=== PATIENT | female | born 1985 | race Caucasian/White ===

== ENCOUNTER 2016-12-11 16:02 | Emergency (ER) | payer OTHER ==
[~2016-12-11] VITALS: Ht 160 cm; Wt 74.1 kg
[2016-12-11 16:12] VITALS: BP 141/92; PULSE 86; RESP 16; O2SAT 99
--- NOTE | 2016-12-11 16:18 | ED.REPORT ---
HPI-Preg Under 20 Weeks Date of Service Dec 11, 2016 ED Provider: Dr. Waldemar Guerrero MD A 31 year old, 9 week female presents to the ED with a possible miscarriage symptoms that began this morning. Associated symptoms include abdominal cramping and vaginal bleeding with "clots". The cramps began last night but the bleeding began an hour prior to arrival. Patient reports that her symptoms do not feel like her previous miscarriages. The clots were approx. the size of a pea. She denies excessive hemorrhagia and her primary concern today is the . Patient has an US scheduled for 12/27. She rates her current pain as a 4/10 and her worst pain as a 6/10. She denies history of ectopic . Patient is Rh positive. She reports hx of chlamydia when she was 14. Nursing Notes Stated Complaint: POSS MISCARRAIGE Chief Complaint: Female Abdominal Pain Nursing Notes Reviewed: Yes Allergies: Coded Allergies: hydrocodone (Verified Allergy, Severe, 12/21/15) General Time Seen by Provider: 16:18 Chief Complaint Vaginal bleeding Context: : Preg test pos serum, ... (9), Para... (4) Hx Obtained From: Patient Arrived By: Walk-in Onset Occurred: 1 - 4 hours ago Symptom Duration: Since onset Progression Since Onset: Constant Location: : Abdomen lower Quality: Cramping Radiation: : None Severity: Current: Pain level 4 out of 10 Severity: Maximum: Pain level 6 out of 10 Associated with: Reports: Vaginal bleeding, Vaginal discharge (clots) Pertinent Negative: Pt denies other symptoms Recent Healthcare: No recent doctor visit, No recent hospitalization Risk-Preg Under 20 Weeks Ectopic Risk Stratification RF Statements: Risk factors reviewed Past Medical History Past Medical History Kidney stones ; currently 9 weeks Past Surgical History None reported. Smoking History Unknown if Ever Smoker Social History Other Social History: Good social support, Local resident Ambulatory Status Independent Review of Systems Constitutional: Denies: Chills, Fever Respiratory: Denies: Shortness of breath GI: Reports: Abdominal pain (Abdominal cramping ) Female: Reports: (approx. 9 weeks ), Vaginal bleeding - abnl ( Spotting during ), Vaginal discharge (Clots ) Complete sys rev & neg: except as marked. Physical Exam Initial Vital Signs Vital Signs (First) Date Time Temp Pulse Resp B/P Pulse Ox O2 Delivery O2 Flow Rate FiO2 3/26/17 16:12 36.8 86 16 141/92 99 Room Air Initial VS: Reviewed Head / Eyes: Atraumatic, Normocephalic, PERRL Extremities: Vascular intact, Neuro intact, No swelling, No tenderness Skin: Warm, Dry, No cyanosis Neurologic: Alert, Oriented, Nonfocal Psychiatric: Mood/affect normal, Behavior normal, Normal thought content General/Constitutional: Awake, Alert Abdomen: Atraumatic, Soft Tenderness/Guarding/Rebound: Positive: Tender LLQ... (tenderness to palpation ) Female Genitourinary: Exam deferred : Exam deferred Respiratory / Chest: Atraumatic, No respiratory distress Cardiovascular: Heart rate NL, Regular rhythm, Heart sounds NL Interpretation & Diagnostics Interpretation & Diagnostics: PROCEDURE: US OB<14 WKS+OB TRANSVAG INDICATIONS: LLQ pain, vaginal spotting, + preg OUTSIDE/PRIOR DATING DATA: Last menstrual period (LMP): Unknown. LMP-based estimated date of delivery (SILVER): Not applicable. First dating scan (date and location): 12.11.16 [facility]. Estimated date of delivery (SILVER) from first dating scan: 08.02.17. TECHNIQUE: Real-time scanning was performed of the fetus and maternal pelvic organs, with image documentation. Endovaginal scanning was also performed to better visualize the fetus and maternal ovaries. COMPARISON: None. FINDINGS: Embryo: An intrauterine gestational sac is present measuring 9 mm. A pole is identified measuring 7 mm. No cardiac activity is seen. Possible yolk sac is seen. There appears to be a small jian-gestational leads superiorly. Measurement variability in dating: +/- 4 weeks by LMP, +/- 7 days by mean sac diameter (use before 6 weeks gestation if crown-rump length not able to be measured), +/- 5 days by crown-rump length (6-12 weeks gestation). Maternal organs: Ovaries not well seen secondary to bowel gas.. Limited images through the kidneys demonstrate no hydronephrosis. IMPRESSION: Early intrauterine gestation. Routine clinical and sonographic followup recommended to document cardiac activity. Dictated by: Nohemi Benedict M.D. on 12/11/2016 at 17:54 Approved by: Nohemi Benedict M.D. on 12/11/2016 at 17:56 Lab Results Interpretation Test 12/11/16 16:45 12/11/16 16:52 Urine Color Yellow (YELLOW) Urine Appearance Clear (CLEAR,HAZY) Urine pH 7.5 (5.0-8.0) Urine Specific [place] 1.010 (1.003-1.035) Urine Protein Negativemg/dL (NEG,TRACE) Urine Glucose (UA) Negativemg/dL (NEGATIVE) Urine Ketones Negativemg/dL (NEGATIVE) Urine Occult Blood Negative (NEGATIVE) Urine Nitrite Negative (NEGATIVE) Urine Bilirubin Negative (NEGATIVE) Urine Urobilinogen Normalmg/dL (NORMAL) Urine Leukocyte Esterase Negative (NEGATIVE) Urine RBC 0-2/hpf (0-2) Urine WBC 0-5/hpf (0-5) Urine Epithelial Cells Moderate/hpf (NONE-MOD) Urine Crystals None seen (NONE SEEN) Urine Bacteria Few/hpf (NONE-FEW) Urine Hyaline Casts None/lpf (NONE) Urine Granular Casts None seen (NONE SEEN) Urine Waxy Casts None seen (NONE SEEN) Urine Red Blood Cell Casts None seen (NONE SEEN) Urine White Blood Cell Casts None seen (NONE SEEN) Urine Mucus None seen (None Seen) Urine Trichomonas None seen (NONE SEEN) Urine Yeast None (NONE SEEN) Urinalysis Comment None Urine Culture Reflexed Not indicated HCG Beta Subunit 3849mIU/mL Hold Yepez Top Tube Received (Received) Re-Eval/Medical Decision Re-Evaluation/Progress : Time of Eval: 17:52 Patient Status: Condition improved Re-Evaluation/Progress Note: Patient is rechecked. She is informed of her lab results, US results and diagnosis. All of the patient's questions are adressed. She understands and agrees with the treatment plan. Counseled Regarding: Diagnosis, Lab results, Need for follow-up, When/why to return to ED Discharge & Departure Primary Impression: Threatened miscarriage in early Disposition: Home Discharge Condition All VS Reviewed: Yes Condition: Improved Patient Instructions: Threatened Miscarriage (ED) Additional Instructions: Thank you for trusting us with your care this morning. Your emergency department evaluation including ultrasound and lab work are inconclusive at this time, however, your results are reassuring that this is not an ectopic . It is too early to see a heart beat and your ultrasound results show that you are approx 6 weeks. I recommend that you attempt to schedule an earlier appointment with your extension service advisor for a follow up. Please return to the emergency department immediately for any new or worsening conditions including any heavy vaginal bleeding, fevers, chills, dizziness or lightheadedness. Referrals: Ross Sandoval PA-C (PCP) Ryan Attestation Portions of this note were transcribed by Brednon Hester. I, Dr. Guerrero personally performed the history, physical exam and medical decision-making; I reviewed and confirmed the accuracy of the information in the transcribed note. Signed by: Ryan Pace, 12/11/16 1800. copies to: Ross Sandoval PA-C, Gary R DO Dec 11, 2016 16:18 BRENDON HESTER Dec 11, 2016 16:28
[2016-12-11 17:24] LABS: APPEARANCE,URINE CLEAR (CLEAR,HAZY); COLOR,URINE YELLOW (YELLOW); OCCULT BLOOD,URINE NEGATIVE (NEGATIVE); PH,URINE 7.5 (5.0-8.0); UROBILINOGEN,URINE NORMAL (NORMAL)
--- NOTE | 2016-12-11 17:58 | DRSVH ---
PROCEDURE: US OB<14 WKS+OB TRANSVAG INDICATIONS: LLQ pain, vaginal spotting, + preg OUTSIDE/PRIOR DATING DATA: Last menstrual period (LMP): Unknown. LMP-based estimated date of delivery (SILVER): Not applicable. First dating scan (date and location): 12.11.16 [facility]. Estimated date of delivery (SILVER) from first dating scan: 08.02.17. TECHNIQUE: Real-time scanning was performed of the fetus and maternal pelvic organs, with image documentation. Endovaginal scanning was also performed to better visualize the fetus and maternal ovaries. COMPARISON: None. FINDINGS: Embryo: An intrauterine gestational sac is present measuring 9 mm. A pole is identified measuri ng 7 mm. No cardiac activity is seen. Possible yolk sac is seen. There appears to be a small pe ri-gestational leads superiorly. Measurement variability in dating: +/- 4 weeks by LMP, +/- 7 days by mean sac diameter (use before 6 weeks gestation if crown-rump length not able to be measured), +/- 5 days by crown-rump length (6-12 weeks gestation). Maternal organs: Ovaries not well seen secondary to bowel gas.. Limited images through the kidneys demonstrate no hydronephrosis. IMPRESSION: Early intrauterine gestation. Routine clinical and sonographic followup recommended to do cument cardiac activity. Dictated by: Nohemi Benedict M.D. on 12/11/2016 at 17:54 Approved by: Nohemi Benedict M.D. on 12/11/2016 at 17:56
[2016-12-11 18:42] VITALS: BP 129/86; PULSE 67; O2SAT 100
[2016-12-11 18:44] VITALS: BP 129/86; PULSE 67; O2SAT 100
== END 2016-12-11 18:45 | disposition home or self-care (01) ==
LOC: SED 16:02
DX: O20.0 Threatened abortion (principal); Z3A.09 9 weeks gestation of pregnancy

== ENCOUNTER 2016-12-14 16:14 | Emergency (ER) | payer OTHER ==
[~2016-12-14] VITALS: Ht 160 cm; Wt 75.0 kg
[2016-12-14 16:39] VITALS: BP 131/88; PULSE 76; RESP 16; O2SAT 99
--- NOTE | 2016-12-14 17:37 | ED.REPORT ---
HPI- Female Date of Service Dec 14, 2016 ED Provider: Semaj Lee DO Patient is a 31 year old female who reports she is 9 weeks who presents to the ED after being referred by urgent care complaining of heavy vaginal bleeding onset 3 days ago. She describes her bleeding as having large clots accompanied by abdominal cramping. She denies lightheadedness, dizziness, or any other symptoms. She was seen in the department 3 days ago at the onset of her symptoms. She claims that she had a miscarriage previously that lasted 12 weeks and she did not receive a D&C. Nursing Notes Stated Complaint: CRAMPING, BLEEDING WITH Chief Complaint: & Delivery Nursing Notes Reviewed: Yes Allergies: Coded Allergies: hydrocodone (Verified Allergy, Severe, 12/14/16) General Time Seen by MD: 17:17 Chief Complaint Vaginal bleeding... Hx Obtained From: Patient Arrived By: Walk-in Sudden in Onset?: Yes Onset Occurred: 3 days ago Symptom Duration: Since onset Past Medical History Past Medical History Kidney stones ; currently 9 weeks Gestational DM Past Surgical History None reported. Smoking History Current Every Day Smoker Social History Alcohol Use: Denies alcohol use Drug Use: THC Other Social History: Good social support, Local resident Ambulatory Status Independent Review of Systems GI: Reports: Abdominal pain Female: Reports: , Vaginal bleeding - abnl Neurologic: Denies: Dizziness, Lightheaded Complete sys rev & neg: except as marked. Physical Exam Initial Vital Signs Vital Signs (First) Date Time Temp Pulse Resp B/P Pulse Ox O2 Delivery O2 Flow Rate FiO2 12/14/16 16:39 36.6 76 16 131/88 99 12/14/16 21:46 Room Air Initial VS: Reviewed General/Constitutional: Well-developed, Well-nourished Head / Eyes: Atraumatic, Normocephalic Neck: Full range of motion Respiratory: No respiratory distress Cardiovascular: Regular rate & rhythm Skin: Warm, Dry Neurologic: Alert, Oriented, Nonfocal Psychiatric: Mood/affect normal, Behavior normal, Normal thought content Female Genitourinary: Welfare Specialist present Mild lower pelvic tenderness Small amount of blood in vagina Os open, signs of conception No active acute hemorrhage Interpretation & Diagnostics Lab Results Interpretation Result Diagram: 12/14/16 191 Test 12/14/16 19:15 White Blood Count 12.1th/mm3 (3.8-10.1) Red Blood Count 4.16mil/mm3 (3.90-5.20) Hemoglobin 13.2g/dL (12.0-15.6) Hematocrit 38.7% (35.0-46.0) Mean Corpuscular Volume 93.0fL (81-100) Mean Corpuscular Hemoglobin 31.7pg (27.0-35.0) Mean Corpuscular Hemoglobin Concent 34.1% (32.0-37.0) Red Cell Distribution Width 12.0% (12.3-15.4) Platelet Count 241bil/L (150-400) Neutrophils (%) (Auto) 61.4% (40-74) Lymphocytes (%) (Auto) 26.5% (14-46) Monocytes (%) (Auto) 8.3% (4-12) Eosinophils (%) (Auto) 3.3% (0-5) Basophils (%) (Auto) 0.2% (0-3) HCG Beta Subunit 2344mIU/mL US Focused OB IMPRESSION: 1. Irregularly shaped gestational sac with questionable pole within. There is no appreciable yolk sac or heart tones. This findings suggest a spontaneous in progress. Close clinical evaluation and serial beta hCG recommended. These findings were discussed with Dr. Lee at 7:15 PM by the material requisitioner. Approved by: Lissett Kirby M.D. on 12/14/2016 at 21:20 Exam Performed by: Allied health pract Re-Eval/Medical Decision Med Decision/Clinical Course This is highly suspicious for a spontaneous . No active hemorrhage and pelvic examination. No signs of active labor. Vital signs are stable. Hemoglobin and hematocrit are reassuring. Rh is positive. I consulted with Dr. Ahuja from obstetrics. We will have outpatient follow-up. Tierra is very pleased with her care and disposition. She will return if she soaks a pad an hour for greater than 3 hours. Short course of Percocet provided for pain. Routine opiate warnings given Re-Evaluation/Progress #1: Time of Eval: 19:00 Re-Evaluation/Progress Note: US estimates patient is 6 weeks and 2 days Re-Evaluation/Progress #2: Time of Eval: 21:24 Re-Evaluation/Progress Note: Rechecked patient. Discussed plan for discharge with followup. Patient understands and agrees with plan. All questions addressed at this time. Consultation : Referral / Consult Name: Garrick Ahuja MD Call Returned at: 21:31 School Business Manager: Will see in office Note: Discussed patient's case. Will see patient in office if needed. Counseled Regarding: Diagnosis, Lab results, Need for follow-up, When/why to return to ED Discharge & Departure Shift Change Sign-Out Response to Therapy: Improved Impression: Primary Impression: Spontaneous Disposition: Home Discharge Condition All VS Reviewed: Yes Condition: Stable Patient Instructions: Spontaneous Miscarriage (ED) Additional Instructions: Take 1-2 Percocet every 6 hours as needed for pain. Do not drive, drink alcohol , or take acetaminophen while taking this medication. Call your OBGYN tomorrow to make a follow up appointment. If your bleeding soaks more than one pad every hour for three hours, return to the emergency department. The ultrasound is very concerning for you having a miscarriage. I expect you're going to have more bleeding and then some cramping and eventually passage of tissue. If you have any problems with this you may need a D&C. Your research intern can discuss this with you as well. Call tomorrow morning to make an appointment with Dr. Ahuja. If needed, he can see you tomorrow morning in [place]. Referrals: NOPCP (PCP) Garrick Ahuja MD Scribe Attestation Portions of this note were transcribed by Erich Tyson. I, Dr. Lee personally performed the history, physical exam and medical decision-making; I reviewed and confirmed the accuracy of the information in the transcribed note. Signed by: Erich Tyson 12/14/16, 8898 copies to: Garrick Ahuja MD, Todd P DO Dec 14, 2016 17:37 ERICH TYSON Dec 14, 2016 18:15
[2016-12-14] MEDS: HYDROmorphone 0.5 mg/0.5 mL iSecure Syringe IVPUSH PRN ×3 (19:10→20:20)
[2016-12-14 19:26] LABS: BASOPHILS % (AUTO) 0.2 % (0-3); EOSINOPHILS % (AUTO) 3.3 % (0-5); MONOCYTES % (AUTO) 8.3 % (4-12); Mean Corpuscular Hemoglobin 31.7 pg (27.0-35.0); NEUTROPHILS % (AUTO) 61.4 % (40-74); Platelet Count 241 bil/L (150-400)
[2016-12-14] MEDS ORDERED: _oxyCODONE/APAP 5-325 mg Tablet PO PRN (21:20)
--- NOTE | 2016-12-14 21:21 | DRSVH ---
PROCEDURE: US OB<14 WKS+OB TRANSVAG INDICATIONS: early , now heavy bleeding and pain OUTSIDE/PRIOR DATING DATA: Last menstrual period (LMP): Unknown. LMP-based estimated date of delivery (SILVER): Not available. First dating scan (date and location): 12/11/16, [facility]. Estimated date of delivery (SILVER) from first dating scan: 08/02/17. TECHNIQUE: Real-time scanning was performed of the fetus and maternal pelvic organs, with image documentation. Endovaginal scanning was also performed to better visualize the fetus and maternal ovaries. COMPARISON: [facility], US, US OB<14 WKS+OB TRANSVAG, 12/11/2016, 16:00. FINDINGS: Embryo: An irregularly shaped gestational sac is visualized with internal echogenic debris. It is un clear whether this represents a pole. No heart tones are detected. No definite yolk sac i s detected. IMPRESSION: 1. Irregularly shaped gestational sac with questionable pole within. There is no appreciable yo lk sac or heart tones. This findings suggest a spontaneous in progress. Close clinical evaluation and serial beta hCG recommended. These findings were discussed with Dr. Lee at 7:15 PM by the high school coach. Approved by: Lissett Kirby M.D. on 12/14/2016 at 21:20
[2016-12-14 21:46] VITALS: BP 122/83; PULSE 72; O2SAT 98
== END 2016-12-14 21:58 | disposition home or self-care (01) ==
LOC: SED 16:14
DX: O03.9 Complete or unspecified spontaneous abortion without complication (principal); O99.331 Smoking (tobacco) complicating pregnancy, first trimester; F17.200 Nicotine dependence, unspecified, uncomplicated; Z3A.09 9 weeks gestation of pregnancy; Z88.5 Allergy status to narcotic agent
CPT/HCPCS: 36415; 76801; 76817; 84702; 85025; 96374; 96376; 99285; J1170

== ENCOUNTER 2017-01-31 21:35 | Emergency (ER) | payer OTHER ==
[~2017-01-31] VITALS: Ht 160 cm; Wt 77.1 kg
[2017-01-31 21:42] VITALS: BP 166/99; PULSE 86; RESP 18; O2SAT 99
--- NOTE | 2017-01-31 23:00 | ED.REPORT ---
HPI-Abd Pain F Under 40 Date of Service January 31, 2017 ED Provider: Semaj Lee DO Patient is a 31 year old female with a history of a kidney stones, UTI and a miscarriage 5 weeks ago who presents to the ED complaining of right flank pain onset last night. Associated symptoms include pain that radiates into her lower right abdomen and nausea. The patient denies abnormal vaginal bleeding or discharge. She reports that the pain is exacerbated by movement. Nursing Notes Stated Complaint: ABDOMINAL PAIN, KIDNEY Chief Complaint: Female Abdominal Pain Nursing Notes Reviewed: Yes Allergies: Coded Allergies: hydrocodone (Verified Allergy, Severe, 12/14/16) General Time Seen by MD: 23:00 Chief Complaint Flank pain right Hx Obtained From: Patient Arrived By: Walk-in Sudden in Onset?: Yes Onset Occurred: Yesterday Symptom Duration: Since onset Location: : RLQ Radiation: : Flank right Associated with: Reports: Nausea Recent Healthcare: No recent doctor visit, Recent doctor visit Similar Sx Previous: Yes Past Medical History Past Medical History Kidney stones miscarriage UTI Past Surgical History None reported. Smoking History Current Every Day Smoker Social History Alcohol Use: Denies alcohol use Drug Use: THC Other Social History: Good social support, Local resident Ambulatory Status Independent Review of Systems Respiratory: Denies: Non-productive cough, Shortness of breath GI: Reports: Abdominal pain, Nausea Female: Reports: Flank pain, Denies: Vaginal bleeding - abnl, Vaginal discharge Complete sys rev & neg: except as marked. Physical Exam Initial Vital Signs Vital Signs (First) Date Time Temp Pulse Resp B/P Pulse Ox O2 Delivery O2 Flow Rate FiO2 01/31/17 21:42 36.4 86 18 166/99 99 Room Air Initial VS: Reviewed General/Constitutional: Awake, Alert Distress / Hydration: Positive: Distress moderate Respiratory / Chest: Atraumatic, Breath sounds NL, Breath sounds = bilat, No respiratory distress Cardiovascular: Heart rate NL, Regular rhythm, Heart sounds NL Abdomen: Atraumatic, Soft, Non-tender Back: Atraumatic, Full range of motion Head / Eyes: Atraumatic, Normocephalic, PERRL, EOMI Skin: Atraumatic, Color NL, No rash, Warm, Dry Neurologic: Oriented X3, Speech NL, No motor deficits, No sensory deficits Psychiatric: Affect NL, Mood NL Interpretation & Diagnostics Lab Results Interpretation Result Diagram: 01/31/17 2047 01/31/17 2329 Test 01/31/17 22:45 01/31/17 23:29 01/31/17 23:30 02/01/17 00:03 Hold Urine Received (Received) White Blood Count 10.3th/mm3 (3.8-10.1) Red Blood Count 4.41mil/mm3 (3.90-5.20) Hemoglobin 14.4g/dL (12.0-15.6) Hematocrit 41.2% (35.0-46.0) Mean Corpuscular Volume 93.4fL (81-100) Mean Corpuscular Hemoglobin 32.7pg (27.0-35.0) Mean Corpuscular Hemoglobin Concent 35.0% (32.0-37.0) Red Cell Distribution Width 12.1% (12.3-15.4) Platelet Count 236bil/L (150-400) Neutrophils (%) (Auto) 60.1% (40-74) Lymphocytes (%) (Auto) 27.9% (14-46) Monocytes (%) (Auto) 8.2% (4-12) Eosinophils (%) (Auto) 3.3% (0-5) Basophils (%) (Auto) 0.3% (0-3) Sodium Level 139mEq/L (134-144) Potassium Level 3.9mEq/L (3.5-5.2) Chloride Level 102mEq/L (97-108) Carbon Dioxide Level 25mmol/L (18-29) Blood Urea Nitrogen 14mg/dL (6-20) Creatinine 0.71mg/dL (0.57-1.00) Estimat Glomerular Filtration Rate 136mL/min (>59) Glucose Level 114mg/dL (60-99) Calcium Level 9.6mg/dL (8.5-10.1) Total Bilirubin 0.2mg/dL (0.0-1.2) Aspartate Amino Transf (AST/SGOT) 17U/L (0-50) Alanine Aminotransferase (ALT/SGPT) 25U/L (0-32) Alkaline Phosphatase 63U/L (25-150) Total Protein 7.8g/dL (6.4-8.4) Albumin 4.7g/dL (3.4-5.0) Human Chorionic Gonadotropin, Qual Negative (Negative) Hold Yepez Top Tube Received (Received) Urine Color Yellow (YELLOW) Urine Appearance Cloudy (CLEAR,HAZY) Urine pH 7.0 (5.0-8.0) Urine Specific [place] 1.015 (1.003-1.035) Urine Protein Negativemg/dL (NEG,TRACE) Urine Glucose (UA) Negativemg/dL (NEGATIVE) Urine Ketones Negativemg/dL (NEGATIVE) Urine Occult Blood Negative (NEGATIVE) Urine Nitrite Negative (NEGATIVE) Urine Bilirubin Negative (NEGATIVE) Urine Urobilinogen Normalmg/dL (NORMAL) Urine Leukocyte Esterase Negative (NEGATIVE) Urine RBC 0-2/hpf (0-2) Urine WBC 0-5/hpf (0-5) Urine Epithelial Cells Few/hpf (NONE-MOD) Urine Crystals Amorphous urates (NONE Urine Bacteria Few/hpf (NONE-FEW) Urine Hyaline Casts None/lpf (NONE) Urine Granular Casts None seen (NONE SEEN) Urine Waxy Casts None seen (NONE SEEN) Urine Red Blood Cell Casts None seen (NONE SEEN) Urine White Blood Cell Casts None seen (NONE SEEN) Urine Mucus None seen (None Seen) Urine Trichomonas None seen (NONE SEEN) Urine Yeast None (NONE SEEN) Urinalysis Comment None Urine Culture Reflexed Not indicated Test 02/01/17 01:45 CT Abd / Pelvis Interpretation CONCLUSION: Negative for obstrutive uropathy. Normal appendix. No acute findings. at 0121 Study type: Abdominal CT no contrast Interpretation / Wet Read by: Interpret - Radiologist Re-Eval/Medical Decision Med Decision/Clinical Course Patient was medicated she felt much better. Acute life-threatening illnesses were not identified. CT scan was reassuring. She does not have a large ovarian cysts (so torsion is very unlikely. I do recommend very close outpatient follow-up Re-Evaluation/Progress : Time of Eval: 01:35 Re-Evaluation/Progress Note: Discussed results and plan for discharge. The patient understands and agrees to the plan for discharge. All questions were addressed. Counseled Regarding: Diagnosis, Lab results, Need for follow-up, When/why to return to ED Discharge & Departure Primary Impression: Right flank pain Disposition: Home Discharge Condition All VS Reviewed: Yes Condition: Stable Patient Instructions: Acute Abdominal Pain (ED) Additional Instructions: We don't know for certain what is causing your pain but your labs are reassuring. You can use heat to try to help with the pain. Try to get some rest and drink plenty of fluids. Take 1-2 Percocet every 6 hours for pain. Do not drink alcohol or drive while taking the pain medication. Do not take Acetaminophen while taking the pain medication.Follow up with your primary care physician. Return to the emergency department if you develop any new or worsening symptoms including fever or increasing pain. Referrals: Bernardo Gomes DO (PCP) Ryan Attestation Portions of this note were transcribed by Loly Ornelas. I, Dr. Lee personally performed the history, physical exam and medical decision-making; I reviewed and confirmed the accuracy of the information in the transcribed note. Signed by: Ryan Arellano, 02/01/17 and 0100 copies to: Bernardo Gomes Todd P DO January 31, 2017 23:00 Viji Ornelas January 31, 2017 23:16
[2017-01-31] MEDS ORDERED: Ondansetron 2 mg/mL 2 mL Inj IVPUSH PRN (23:15)
[2017-01-31 23:32] LABS: BASOPHILS % (AUTO) 0.3 % (0-3); EOSINOPHILS % (AUTO) 3.3 % (0-5); MONOCYTES % (AUTO) 8.2 % (4-12); Mean Corpuscular Hemoglobin 32.7 pg (27.0-35.0); Mean Corpuscular Volume 93.4 fL (81-100); NEUTROPHILS % (AUTO) 60.1 % (40-74); Platelet Count 236 bil/L (150-400)
[2017-01-31] MEDS: HYDROmorphone 1 mg/mL Inj IVPUSH PRN (23:37)
[2017-02-01 00:11] LABS: APPEARANCE,URINE CLOUDY (CLEAR,HAZY); COLOR,URINE YELLOW (YELLOW)
[2017-02-01 00:12] LABS: OCCULT BLOOD,URINE NEGATIVE (NEGATIVE); UROBILINOGEN,URINE NORMAL (NORMAL)
[2017-02-01] MEDS ORDERED: Sodium Chloride LOK Flush 10 mL Syringe IVFLUSH SCH (00:30)
[2017-02-01] MEDS: HYDROmorphone 1 mg/mL Inj IVPUSH PRN (00:43)
[2017-02-01] MEDS ORDERED: _oxyCODONE/APAP 5-325 mg Tablet PO PRN (01:50)
[2017-02-01 02:27] VITALS: BP 128/70; PULSE 74; RESP 14; O2SAT 98
--- NOTE | 2017-02-01 07:49 | DRSVH ---
PROCEDURE: CT KUB ([id number]) INDICATIONS: right flank pain TECHNIQUE: Noncontrast 5 mm thick sections acquired from the diaphragms to the symphysis. 5 mm thick coronal an d sagittal reformats were then performed. For radiation dose reduction, the following was used: aut omated exposure control, adjustment of mA and/or kV according to patient size. COMPARISON: None. FINDINGS: Image quality: Excellent. Lung bases: Lung bases are clear. Heart size is normal. Urinary system: Both kidneys are normal in size. No kidney stones. No hydronephrosis or perinephri c fat stranding. Both ureters appear non-dilated throughout their expected courses. Bladder wall th ickness is normal; no calcified bladder stones. Other solid organs: Liver and spleen are normal in size. Gallbladder is within normal limits. Panc reas is normal in contours. No adrenal nodules. Peritoneum and bowel: Unenhanced bowel loops demonstrate normal wall thickness and caliber. Trace f ree fluid in the cul-de-sac of the pelvis. No free air. Nodes and vessels: No retroperitoneal or mesenteric adenopathy by size criteria. Aorta and inferior vena cava are normal in caliber. Abdominal wall: No ventral hernias. Pelvis: No free pelvic fluid. No inguinal hernias or adenopathy. Bones: No suspicious bony lesions. No vertebral body compression fractures. IMPRESSION: 1. No renal stone or hydronephrosis. 2. The appendix is normal. Dictated by: Rocio Monreal MD, PhD on 02/01/2017 at 7:44 Approved by: Rocio Monreal MD, PhD on 02/01/2017 at 7:47
== END 2017-02-01 02:00 | disposition home or self-care (01) ==
LOC: SED 21:35
DX: R10.31 Right lower quadrant pain (principal); R11.0 Nausea; F17.200 Nicotine dependence, unspecified, uncomplicated; Z87.442 Personal history of urinary calculi; Z87.440 Personal history of urinary (tract) infections; Z88.5 Allergy status to narcotic agent
CPT/HCPCS: 36415; 74176; 80053; 81000; 81025; 84703; 85025; 87491; 87591; 96374; 96375; 96376; 99285; J1170; J1885; J2405

== ENCOUNTER 2017-05-10 16:31 | Emergency (ER) | payer OTHER ==
[~2017-05-10] VITALS: Ht 160 cm; Wt 77.3 kg
[2017-05-10 16:41] VITALS: BP 141/97; PULSE 87; RESP 18; O2SAT 100
[2017-05-10 18:07] LABS: BASOPHILS % (AUTO) 0.2 % (0-3); EOSINOPHILS % (AUTO) 1.8 % (0-5); MONOCYTES % (AUTO) 7.3 % (4-12); Mean Corpuscular Hemoglobin 32.2 pg (27.0-35.0); Mean Corpuscular Volume 92.9 fL (81-100); NEUTROPHILS % (AUTO) 73.2 % (40-74); Platelet Count 223 bil/L (150-400)
[2017-05-10 18:23] LABS: Magnesium 2.2 mg/dL (1.6-2.6)
--- NOTE | 2017-05-10 18:41 | ED.REPORT ---
HPI-Preg Under 20 Weeks Date of Service May 10, 2017 ED Provider: Puneet Houston DO The pt is a 31 y/o 8 weeks female with a hx of three miscarriages and gestational diabetes with previous who presents to the ED complaining of left sided suprapubic cramping for the last 2 days. Associated sx include nausea, vomiting, dizziness and lightheadedness. She denies spotting and any other sx at this time. Nursing Notes Stated Complaint: DIZZY, CRAMPS WITH , VOMITING Chief Complaint: General Complaint Nursing Notes Reviewed: Yes Allergies: Coded Allergies: hydrocodone (Verified Allergy, Severe, 05/10/17) Scheduled PRN Ondansetron ODT (Zofran ODT) 4 Mg Tablet 4 MG PO Q4H PRN PRN For Nausea General Time Seen by Provider: 18:43 Chief Complaint Abdominal cramping Hx Obtained From: Patient Arrived By: Walk-in Onset Occurred: 2 days ago Symptom Duration: Since onset Location: : Suprapubic Quality: Cramping Radiation: : None Severity: Current: Moderate Severity: Maximum: Moderate Recent Healthcare: No recent doctor visit Past Medical History Past Medical History Kidney stones 3 miscarriages UTI Past Surgical History None reported. Smoking History Current Every Day Smoker Social History Alcohol Use: Denies alcohol use Drug Use: THC Other Social History: Good social support, Local resident Ambulatory Status Independent Review of Systems Denies: spotting GI: Reports: Abdominal pain, Nausea, Vomiting Neurologic: Reports: Dizziness, Lightheaded Complete sys rev & neg: except as marked. Physical Exam Initial Vital Signs Vital Signs (First) Date Time Temp Pulse Resp B/P Pulse Ox O2 Delivery O2 Flow Rate FiO2 05/10/17 16:41 36.3 87 18 141/97 100 Room Air Initial VS: Reviewed Head / Eyes: Atraumatic, Normocephalic Neck: Supple, Non-tender, Full range of motion Respiratory: Breath sounds normal, Clear to auscultation, No respiratory distress Cardiovascular: Regular rate & rhythm, Heart sounds normal, Intact distal pulses Extremities: Vascular intact, Neuro intact, No swelling, No tenderness Skin: Warm, Dry, No cyanosis Neurologic: Alert, Oriented, Nonfocal General/Constitutional: Awake, Alert, No acute distress, Well appearing, Cooperative Abdomen: Atraumatic, Soft, Non-tender, No guarding, No rebound Female Genitourinary: Exam deferred : Exam deferred Interpretation & Diagnostics Lab Results Interpretation Result Diagram: 05/10/17 1758 05/10/17 1758 Test 05/10/17 17:58 White Blood Count 9.7th/mm3 (3.8-10.1) Red Blood Count 4.25mil/mm3 (3.90-5.20) Hemoglobin 13.7g/dL (12.0-15.6) Hematocrit 39.5% (35.0-46.0) Mean Corpuscular Volume 92.9fL (81-100) Mean Corpuscular Hemoglobin 32.2pg (27.0-35.0) Mean Corpuscular Hemoglobin Concent 34.7% (32.0-37.0) Red Cell Distribution Width 12.3% (12.3-15.4) Platelet Count 223bil/L (150-400) Neutrophils (%) (Auto) 73.2% (40-74) Lymphocytes (%) (Auto) 17.3% (14-46) Monocytes (%) (Auto) 7.3% (4-12) Eosinophils (%) (Auto) 1.8% (0-5) Basophils (%) (Auto) 0.2% (0-3) Sodium Level 135mEq/L (134-144) Potassium Level 3.7mEq/L (3.5-5.2) Chloride Level 100mEq/L (97-108) Carbon Dioxide Level 21mmol/L (18-29) Blood Urea Nitrogen 12mg/dL (6-20) Creatinine 0.63mg/dL (0.57-1.00) Estimat Glomerular Filtration Rate 156mL/min (>59) Glucose Level 85mg/dL (60-99) Calcium Level 8.8mg/dL (8.5-10.1) Magnesium Level 2.2mg/dL (1.6-2.6) Total Bilirubin 0.4mg/dL (0.0-1.2) Aspartate Amino Transf (AST/SGOT) 34U/L (0-50) Alanine Aminotransferase (ALT/SGPT) 82U/L (0-32) Alkaline Phosphatase 53U/L (25-150) Total Protein 7.3g/dL (6.4-8.4) Albumin 4.4g/dL (3.4-5.0) Lipase 14U/L (13-60) HCG Beta Subunit 9981mIU/mL Hold Yepez Top Tube Received (Received) US Focused OB IMPRESSION: Single living intrauterine with ultrasound estimated gestational age of 7 weeks 4 days corresponding to ultrasound SILVER of 12/23/17. Dictated by: Rocio Monreal MD, PhD on 05/10/2017 at 20:15 Approved by: Roico Monreal MD, PhD on 05/10/2017 at 20:17 Exam Interpreted by: Radiologist Re-Eval/Medical Decision Med Decision/Clinical Course Initial differential diagnosis included ectopic , spontaneous , threatened , early pelvic pain. Given the left lower quadrant tenderness ectopic was on the differential and an ultrasound and basic labs were ordered. Ultrasound shows a viable IUP without free fluid. Patient is not having vaginal bleeding or discharge she declined a pelvic exam. Return and follow-up precautions given Re-Evaluation/Progress #1: Time of Eval: 18:45 Re-Evaluation/Progress Note: Discussed lab results and plan to do an ulatrasound. The pt understands and agrees with the plan. All questions answered. Re-Evaluation/Progress #2: Time of Eval: 19:47 Re-Evaluation/Progress Note: Rechecked pt. Discussed lab results, imaging results, diagnosis and plan to discharge. Pt understands and agrees with the plan. F/U instruction and RTER warning given. All questions addressed. Counseled Regarding: Diagnosis, Lab results, Need for follow-up, When/why to return to ED Discharge & Departure Primary Impression: Pelvic pain Disposition: Home Discharge Condition All VS Reviewed: Yes Condition: Stable Additional Instructions: As of this point, the baby looks reassuring on ultrasound. Follow-up with your INVESTIGATOR [facility] in the next 2 days. Return to the ER as needed for severe pain, high fever, heavy vaginal bleeding, or other concerns Referrals: [facility] (PCP) Scribe Attestation Portions of this note were transcribed by Cory Melendez. I,, personally performed the history,physical exam and medical decision-making;I reviewed and confirmed the accuracy of the information in the transcribed note. Signed by Ryan Berry. 05/10/17 copies to: [facility]AP[facility]'Marguerite,Puneet S DO May 10, 2017 18:41 Cory Melendez May 10, 2017 18:47
[2017-05-10] MEDS ORDERED: MetoCLOpramide 5 mg/mL 2 mL Inj IVPUSH ONE (18:45)
[2017-05-10] MEDS ORDERED: 0.9% Sodium Chloride 1,000 ML IV ONE (18:45)
[2017-05-10] MEDS ORDERED: ONDA4TAB9 PO (19:58)
--- NOTE | 2017-05-10 20:18 | DRSVH ---
PROCEDURE: US OB<14 WKS+OB TRANSVAG INDICATIONS: early pelvic pain, eval for iup/ectopic OUTSIDE/PRIOR DATING DATA: Last menstrual period (LMP): Not known. LMP-based estimated date of delivery (SILVER): Not applicable. First dating scan (date and location): 05/10/17. Estimated date of delivery (SILVER) from first dating scan: 12/23/17. TECHNIQUE: Real-time scanning was performed of the fetus and maternal pelvic organs, with image documentation. Endovaginal scanning was also performed to better visualize the fetus and maternal ovaries. COMPARISON: None. FINDINGS: Embryo: Single living intrauterine identified. Yolk sac identified. [place]-rump length me asures 1.3 cm corresponding to gestational age of 7 weeks 4 days. heart rate measured at 160 b eats per minute. Measurement variability in dating: +/- 4 weeks by LMP, +/- 7 days by mean sac diameter (use before 6 weeks gestation if crown-rump length not able to be measured), +/- 5 days by crown-rump length (up t o 8 weeks 6 days gestation), +/- 7 days by crown-rump length (up to 13 weeks 6 days gestation). Maternal organs: Right adnexa is normal. 1.5 cm cyst the left adnexa. Limited images through the k idneys demonstrate no hydronephrosis. IMPRESSION: Single living intrauterine with ultrasound estimated gestational age of 7 week s 4 days corresponding to ultrasound SILVER of 12/23/17. Dictated by: Rocio Monreal MD, PhD on 05/10/2017 at 20:15 Approved by: Rocio Monreal MD, PhD on 05/10/2017 at 20:17
[2017-05-10 20:25] VITALS: BP 128/83; PULSE 79; RESP 20; O2SAT 100
== END 2017-05-10 20:25 | disposition home or self-care (01) ==
LOC: SED 16:31
DX: O26.891 Other specified pregnancy related conditions, first trimester (principal); O21.0 Mild hyperemesis gravidarum; R10.2 Pelvic and perineal pain; R42 Dizziness and giddiness; F17.200 Nicotine dependence, unspecified, uncomplicated; Z3A.08 8 weeks gestation of pregnancy; Z88.5 Allergy status to narcotic agent; Z87.442 Personal history of urinary calculi; Z87.440 Personal history of urinary (tract) infections
CPT/HCPCS: 36415; 76801; 76817; 80053; 82948; 83690; 83735; 84702; 85025; 96361; 96374; 99285; J2765; J7030

== ENCOUNTER 2017-05-21 10:23 | Emergency (ER) | payer OTHER ==
[~2017-05-21] VITALS: Ht 160 cm; Wt 76.4 kg
[~2017-05-21 10:23] MED LIST: ONDA4TAB9 PO
[2017-05-21 10:39] VITALS: BP 129/80; PULSE 77; RESP 16; O2SAT 100
[2017-05-21] MEDS ORDERED: 0.9% Sodium Chloride 1,000 ML IV ONE (12:11)
--- NOTE | 2017-05-21 12:21 | ED.REPORT ---
HPI- Female Date of Service May 21, 2017 ED Provider: Cara Trivedi History of Present Illness: 31-year-old female here for vaginal bleeding. She was seen for the same 05/10/2017 had a normal ultrasound done. 7 weeks gestation at that time. She had stopped bleeding after her visit here, saw her DETECTIVE INVESTIGATOR 2 days later and had another well check. Last night she started spotting pink and today she is passing large clots. She has not saturated one pad, but it has only been going on x 5 hrs. She has 7 out of 10 abdominal cramping. Fevers. She is a history of 4 previous miscarriages and 3 live births. sHe is a smoker. Nursing Notes Stated Complaint: VAGINAL BLEEDING,APROXIMATELY 10 WEEKS Chief Complaint: & Delivery Nursing Notes Reviewed: Yes Allergies: Coded Allergies: hydrocodone (Verified Allergy, Severe, 05/10/17) Scheduled PRN Ondansetron ODT (Zofran ODT) 4 Mg Tablet 4 MG PO Q4H PRN PRN For Nausea oxyCODONE-Acetaminophen 5-325 mg (oxyCODONE-Acetaminophen 5-325 mg) 1 Each Tablet 1-2 TAB PO Q6H PRN PRN For Pain General Time Seen by MD: 12:05 Chief Complaint Abdominal pain..., Vaginal bleeding... Hx Obtained From: Patient Arrived By: Walk-in Sudden in Onset?: Yes Onset Occurred: 5 - 8 hours ago Symptom Duration: Since onset Location: : Abdomen lower: Abdomen upper Quality: Cramping Severity: Current: Pain level 7 out of 10 Severity: Maximum: Pain level 7 out of 10 Status: Positive - ED urine HCG Sexual History / Control: Reports Pt is sexually active : 7 Para: 3 Recent Healthcare: Recent doctor visit Similar Sx Previous: Yes Risk- Female Risk Notes: Smoker Past Medical History Past Medical History Kidney stones 3 miscarriages UTI Past Surgical History None reported. Smoking History Current Every Day Smoker Social History Alcohol Use: Denies alcohol use Drug Use: THC Other Social History: Good social support, Local resident Ambulatory Status Independent Review of Systems Basic Review of Systems Respiratory: No shortness of breath Cardiovascular: No chest pain Constitutional: Denies: Chills, Fatigue, Fever GI: Reports: Abdominal pain Female: Reports: Pelvic pain, , Vaginal bleeding - abnl, Vaginal discharge, Denies: Dysuria Musculoskeletal: Denies: Back pain Endocrine: Denies: Cold intolerance Neurologic: Denies: Abnormal movement, Confusion Complete sys rev & neg: except as marked. Physical Exam Initial Vital Signs Vital Signs (First) Date Time Temp Pulse Resp B/P Pulse Ox O2 Delivery O2 Flow Rate FiO2 05/21/17 10:39 36.6 77 16 129/80 100 Room Air Initial VS: Reviewed, Vital signs normal General/Constitutional: Well-developed, Well-nourished Head / Eyes: Atraumatic, Normocephalic, PERRL ENT: Mucous membranes moist, Conjunctiva normal, No scleral icterus Neck: Supple, Non-tender, Full range of motion Respiratory: Breath sounds normal, Clear to auscultation, No respiratory distress Cardiovascular: Regular rate & rhythm, Heart sounds normal, Intact distal pulses Abdomen / GI: Soft, No guarding, No rebound, No distention Back: No CVA tenderness Lymphatic: No lymphadenopathy Skin: Warm, Dry, No cyanosis Neurologic: Alert, Oriented, Nonfocal Psychiatric: Mood/affect normal, Behavior normal, Normal thought content Abdomen: Atraumatic, McBurney's non-tender, BS normoactive, No distention, No hernia, No palpable mass, No pulsatile mass Tenderness/Guarding/Rebound: Positive: Tender LLQ... (Moderate), Tender LUQ... (Moderate) Cervical os closed mild amount of sanguinous debris in vaginal canal. Interpretation & Diagnostics Lab Results Interpretation Result Diagram: 05/21/17 1225 05/21/17 1225 Test 05/21/17 12:25 05/21/17 12:45 05/21/17 15:48 White Blood Count 11.8th/mm3 (3.8-10.1) Red Blood Count 4.23mil/mm3 (3.90-5.20) Hemoglobin 13.6g/dL (12.0-15.6) Hematocrit 39.0% (35.0-46.0) Mean Corpuscular Volume 92.2fL (81-100) Mean Corpuscular Hemoglobin 32.2pg (27.0-35.0) Mean Corpuscular Hemoglobin Concent 34.9% (32.0-37.0) Red Cell Distribution Width 12.5% (12.3-15.4) Platelet Count 253bil/L (150-400) Neutrophils (%) (Auto) 67.5% (40-74) Lymphocytes (%) (Auto) 22.3% (14-46) Monocytes (%) (Auto) 7.8% (4-12) Eosinophils (%) (Auto) 2.1% (0-5) Basophils (%) (Auto) 0.2% (0-3) Sodium Level 138mEq/L (134-144) Potassium Level 3.8mEq/L (3.5-5.2) Chloride Level 101mEq/L (97-108) Carbon Dioxide Level 21mmol/L (18-29) Blood Urea Nitrogen 11mg/dL (6-20) Creatinine 0.58mg/dL (0.57-1.00) Estimat Glomerular Filtration Rate 171mL/min (>59) Glucose Level 89mg/dL (60-99) Calcium Level 9.7mg/dL (8.5-10.1) Magnesium Level 2.0mg/dL (1.6-2.6) Total Bilirubin 0.2mg/dL (0.0-1.2) Aspartate Amino Transf (AST/SGOT) 19U/L (0-50) Alanine Aminotransferase (ALT/SGPT) 30U/L (0-32) Alkaline Phosphatase 57U/L (25-150) Total Protein 7.3g/dL (6.4-8.4) Albumin 4.1g/dL (3.4-5.0) Lipase 19U/L (13-60) HCG Beta Subunit 4608mIU/mL Hold Yepez Top Tube Received (Received) Hold Urine Received (Received) US Focused OB PROCEDURE: US OB<14 WKS INDICATIONS: bleeding in OUTSIDE/PRIOR DATING DATA: Last menstrual period (LMP): Unknown. First dating scan (date and location): 05/10/17. Estimated date of delivery (SILVER) from first dating scan: 12/23/17. TECHNIQUE: Real-time scanning was performed of the fetus and maternal pelvic organs, with image documentation. Endovaginal scanning was also performed to better visualize the fetus and maternal ovaries. COMPARISON: [facility], US, US OB<14 WKS+OB TRANSVAG, 05/10/2017, 19:06. FINDINGS: Embryo: There is a gestational sac, yolk sac, and pole redemonstrated. The crown-rump length measures approximately 1.7 cm corresponding to gestational age of 8 weeks 1 day. No heart motion was identified on grayscale or Doppler evaluation. Measurement variability in dating: +/- 4 weeks by LMP, +/- 7 days by mean sac diameter (use before 6 weeks gestation if crown-rump length not able to be measured), +/- 5 days by crown-rump length (up to 8 weeks 6 days gestation), +/- 7 days by crown-rump length (from 9 weeks to 13 weeks 6 days gestation). Maternal organs: Ovaries are appear within normal limits. There is a probable corpus luteal cyst in the left ovary measuring approximately 1.8 cm.. IMPRESSION: 1. Intrauterine redemonstrated without heart motion identified. Findings are compatible with demise. Re-Eval/Medical Decision Med Decision/Clinical Course Discussed case with Dr. Madrigal. Agrees with discharge and plan. blood type O+ Minimal amount of discharge/sanguinous fluid noted in vaginal canal. Os was closed. Discharge & Departure Shift Change Sign-Out Laboratory Evaluation: Lab evaluation discussed Imaging Studies: Imaging discussed Procedures: Results discussed Response to Therapy: Improved Impression: Primary Impression: Spontaneous Disposition: Home Discharge Condition Condition: Stable Patient Instructions: Miscarriage (ED) Additional Instructions: Follow-up with your DETECTIVE INVESTIGATOR in the next 1-2 days. Return here if severe pain, fevers or worsening condition. Otherwise take pain meds as needed Referrals: [facility] (PCP) EDSupervising Provider for APC: Puneet Houston DO copies to: Puneet Houston Linnea K ARNP May 21, 2017 12:21
[2017-05-21 12:37] LABS: BASOPHILS % (AUTO) 0.2 % (0-3); EOSINOPHILS % (AUTO) 2.1 % (0-5); MONOCYTES % (AUTO) 7.8 % (4-12); Mean Corpuscular Hemoglobin 32.2 pg (27.0-35.0); Mean Corpuscular Volume 92.2 fL (81-100); NEUTROPHILS % (AUTO) 67.5 % (40-74); Platelet Count 253 bil/L (150-400)
[2017-05-21 14:46] VITALS: BP 124/70; PULSE 65; RESP 20; O2SAT 97
--- NOTE | 2017-05-21 15:36 | DRSVH ---
PROCEDURE: US OB<14 WKS INDICATIONS: bleeding in OUTSIDE/PRIOR DATING DATA: Last menstrual period (LMP): Unknown. First dating scan (date and location): 05/10/17. Estimated date of delivery (SILVER) from first dating scan: 12/23/17. TECHNIQUE: Real-time scanning was performed of the fetus and maternal pelvic organs, with image documentation. Endovaginal scanning was also performed to better visualize the fetus and maternal ovaries. COMPARISON: [facility], , US OB<14 WKS+OB TRANSVAG, 05/10/2017, 19:06. FINDINGS: Embryo: There is a gestational sac, yolk sac, and pole redemonstrated. The crown-rump length m easures approximately 1.7 cm corresponding to gestational age of 8 weeks 1 day. No heart motio n was identified on grayscale or Doppler evaluation. Measurement variability in dating: +/- 4 weeks by LMP, +/- 7 days by mean sac diameter (use before 6 weeks gestation if crown-rump length not able to be measured), +/- 5 days by crown-rump length (up t o 8 weeks 6 days gestation), +/- 7 days by crown-rump length (from 9 weeks to 13 weeks 6 days gestati on). Maternal organs: Ovaries are appear within normal limits. There is a probable corpus luteal cyst in the left ovary measuring approximately 1.8 cm.. IMPRESSION: 1. Intrauterine redemonstrated without heart motion identified. Findings are compat ible with demise. Dictated by: Russel Mauro M.D. on 05/21/2017 at 15:31 Approved by: Russel Mauro M.D. on 05/21/2017 at 15:35
[2017-05-21] MEDS ORDERED: OXYC1TAB24 PO (16:01)
[2017-05-21 16:24] VITALS: BP 106/69; PULSE 65; RESP 20; O2SAT 96
== END 2017-05-21 16:25 | disposition home or self-care (01) ==
LOC: SED 10:23
DX: O03.9 Complete or unspecified spontaneous abortion without complication (principal); F17.200 Nicotine dependence, unspecified, uncomplicated; Z88.5 Allergy status to narcotic agent
CPT/HCPCS: 36415; 76801; 80053; 81025; 83690; 83735; 84702; 85025; 87491; 87591; 96360; 99285; J7030